=== PATIENT | female | born 1935 | race Caucasian/White ===

== ENCOUNTER 2018-12-30 20:43 | Inpatient (IN) ==
[2018-12-30] MEDS ORDERED: IOPAMIDOL 100 ML BOTTLE IV ONE (20:44)
[2018-12-30] MEDS ORDERED: 0.9 % SODIUM CHLORIDE 1,000 ML IV ONE ×2 (21:22→21:45)
--- NOTE | 2018-12-30 21:50 | Emergency Department Note ---
Weakness HPI - General Chief complaint: Weakness Stated complaint: Tired and Weak Time Seen by Provider: 12/30/18 20:47 Source: patient Mode of arrival: ambulatory Limitations: no limitations - History of Present Illness HPI Narrative: 83-year-old female comes in for weakness via EMS. They wrote that she was homeless but she reports that she is actually from the [facility] and is visiting-she is overall well dressed and has clean socks on so I am having trouble sorting this out as obviously she is getting clean clothes from somewhere. She is overall poor historian and I am not able to get much in the way of reliable history. She says she has chronic arthritis of her knees and ankles. She cannot really describe her weakness just that she is feeling very fatigued and weak. She states that she came up here with her son who had some doctor's appointments but he is not present. She cannot tell me when her last bowel movement or urine was. She cannot tell me where she ate breakfast this morning or any other details of her day. She cannot tell me which medicines she takes . she does have a history of dementia on chart review-there is a outside hospital report from [facility] as well as a previous note from back in September with Dr. jones. She is febrile here. No chest pain Her son came in and I briefly discussed the case with her. He says they are homeless and living in a tent. He cannot give me any meaningful medical history however - Related Data Home Medications Medication Instructions Recorded Confirmed Gabapentin [Neurontin] 300 mg PO DAILY 09/08/18 09/08/18 Gabapentin [Neurontin] 600 mg PO HS 09/08/18 09/08/18 Allergies Allergy/AdvReac Type Severity Reaction Status Date / Time No Known Drug Allergies Allergy Verified 09/08/18 00:01 Review of Systems Limitations: ROS unobtainable due to patients medical condition Past Medical History - Past Medical History Source: unable to obtain, old records reviewed Medical history: Reports: dementia Psychiatric history: Reports: anxiety Surgical history ED: Reports: - Social History smoking status: Current every day smoker Physical Exam Thin female no acute distress somnolent. Normocephalic atraumatic. Conjunctive are clear sclerae white and icteric. Pupils are equal round reactive to light. No nasal discharge or congestion. Oropharynx pink but seems dry. Posterior pharynx is clear. Neck is supple without lymphadenopathy or thyromegaly. No carotid bruit. Heart is regular rate and rhythm no murmur appreciated. However occasional irregular beat heard. Lungs are clear to auscultation bilaterally without wheezes rales rhonchi or respiratory distress. She is able to sit up for my exam without any difficulty abdomen is soft nontender nondistended. No pedal edema. She is alert. In terms of orientation she can tell me who she is but not necessarily where she is. When probed further about why she is here she is really sort of nebulous on that to-notes some weakness. Rectal exam was done because of her low hemoglobin. She is Hemoccult negative but she does have an old hemorrhoid tag-no active hemorrhoids noted. Normal rectal tone Limitations: no limitations Course Vital Signs Temperature 101.3 F H 12/30/18 20:43 Pulse Rate 94 H 12/30/18 20:43 Respiratory Rate 20 12/30/18 20:43 Blood Pressure 150/99 12/30/18 20:43 Pulse Oximetry (%) 97 12/30/18 20:43 Temperature 99.1 F H 12/31/18 00:13 Pulse Rate 87 12/31/18 01:50 Respiratory Rate 20 12/30/18 20:43 Blood Pressure 157/91 12/31/18 01:45 Pulse Oximetry (%) 96 12/31/18 01:50 Weakness - Lab Data Lab results reviewed: Yes I reviewed the patient's lab results. Result diagrams: 12/30/18 21:00 12/30/18 21:00 Lab Results 12/30/18 12/30/18 12/30/18 Range/Units 21:00 21:00 21:00 WBC 8.2 (4.5-11.0) K/mcL RBC 2.56 L (4.00-5.20) M/mcL Hgb 7.9 L (12.0-15.0) g/dL Hct 24.8 L (36.0-48.0) % MCV 96.6 (80.0-100.0) fL MCH 31.0 (26.0-34.0) pg MCHC 32.0 (31.0-36.0) g/dL RDW 13.4 (11.5-14.5) % Plt Count 217 (140-440) K/mcL MPV 7.4 (7.4-10.4) fL Gran % 52.3 (38.0-78.0) % Lymph % (Auto) 37.6 (15.5-49.0) % [place] % (Auto) 9.0 (1.0-12.0) % Eos % (Auto) 0.7 (0.0-7.0) % Baso % (Auto) 0.4 (0.0-2.0) % Gran # 4.3 (1.8-8.0) K/mcL Lymph # (Auto) 3.1 (1.5-4.8) K/mcL [place] # (Auto) 0.7 (0.1-0.9) K/mcL Eos # (Auto) 0.1 (0.0-0.7) K/mcL Baso # (Auto) 0 (0.0-0.3) K/mcL PT 13.5 (11.9-14.5) sec INR 1.0 (0.9-1.1) D-Dimer 0.86 H (0.00-0.40) ug/ml Sodium 133 (133-145) mmol/L Potassium 4.1 (3.3-5.1) mmol/L Chloride 100 (96-108) mmol/L Carbon Dioxide 23 (22-30) mmol/L Anion Gap 10.0 (8-16) BUN 31 H (8-23) mg/dl Creatinine 1.4 H (0.6-1.1) mg/dl GFR Calculation 35 Glucose 107 H (70-105) mg/dL Calcium 7.8 L (8.6-10.4) mg/dl Magnesium (1.6-2.5) mg/dL Total Bilirubin 0.4 (0.0-1.0) mg/dL AST 13 (0-37) U/l ALT 9 (0-40) U/l Alkaline Phosphatase 70 (39-117) U/L Troponin T (0-0.03) ng/ml NT-Pro-B Natriuret Pep (0-450) pg/ml Total Protein 11.2 H (5.9-8.4) gm/dL Albumin 2.2 L (3.2-5.2) gm/dL Globulin 9.0 H (2.2-3.7) gm/dL Albumin/Globulin Ratio 0.2 L (1.0-2.3) 12/30/18 12/30/18 Range/Units 21:00 21:00 WBC (4.5-11.0) K/mcL RBC (4.00-5.20) M/mcL Hgb (12.0-15.0) g/dL Hct (36.0-48.0) % MCV (80.0-100.0) fL MCH (26.0-34.0) pg MCHC (31.0-36.0) g/dL RDW (11.5-14.5) % Plt Count (140-440) K/mcL MPV (7.4-10.4) fL Gran % (38.0-78.0) % Lymph % (Auto) (15.5-49.0) % [place] % (Auto) (1.0-12.0) % Eos % (Auto) (0.0-7.0) % Baso % (Auto) (0.0-2.0) % Gran # (1.8-8.0) K/mcL Lymph # (Auto) (1.5-4.8) K/mcL [place] # (Auto) (0.1-0.9) K/mcL Eos # (Auto) (0.0-0.7) K/mcL Baso # (Auto) (0.0-0.3) K/mcL PT (11.9-14.5) sec INR (0.9-1.1) D-Dimer (0.00-0.40) ug/ml Sodium (133-145) mmol/L Potassium (3.3-5.1) mmol/L Chloride (96-108) mmol/L Carbon Dioxide (22-30) mmol/L Anion Gap (8-16) BUN (8-23) mg/dl Creatinine (0.6-1.1) mg/dl GFR Calculation Glucose (70-105) mg/dL Calcium (8.6-10.4) mg/dl Magnesium 1.9 (1.6-2.5) mg/dL Total Bilirubin (0.0-1.0) mg/dL AST (0-37) U/l ALT (0-40) U/l Alkaline Phosphatase (39-117) U/L Troponin T < 0.01 (0-0.03) ng/ml NT-Pro-B Natriuret Pep 1153.0 H (0-450) pg/ml Total Protein (5.9-8.4) gm/dL Albumin (3.2-5.2) gm/dL Globulin (2.2-3.7) gm/dL Albumin/Globulin Ratio (1.0-2.3) Urinalysis [id number] dipstick shows trace leukocytes and moderate amount of blood - Radiology Data Radiology results reviewed: Yes I reviewed the patient's radiology results. Chest x-ray is concerning for right upper lobe pathology-unclear if this is pneumonia or scarring. CT scan of the chest showed mild diffuse airway inflammation and some small mucous plugging. She has a couple of small renal lesions as well will require further characterization - EKG Data EKG attestation: Yes I reviewed and interpreted this EKG. EKG results narrative: EKG shows a rate of 85 normal sinus rhythm minimal ST elevation in V2 and 3-does not meet criteria for ischemia Disposition Pt seen by [facility] [facility] only: No Clinical Impression: Weakness Dementia Qualifiers: Dementia type: unspecified type Dementia behavioral disturbance: without behavioral disturbance Qualified Code(s): F03.90 - Unspecified dementia without behavioral disturbance Anemia Qualifiers: Anemia type: unspecified type Qualified Code(s): D64.9 - Anemia, unspecified UTI (urinary tract infection) Qualifiers: Urinary tract infection type: acute cystitis Hematuria presence: with hematuria Qualified Code(s): N30.01 - Acute cystitis with hematuria Summary: Weakness and somnolence in a woman with underlying dementia. She is febrile as well. Work-up ordered with laboratory CT scan of the head and chest x-ray EKG. Fluids started. She does not have any meningeal signs and she is able to move her head and neck normally We will start blood cultures and Zosyn, vancomycin for antibiotics. We will presumptively treat her for sepsis as she is febrile has altered mental status and tachycardia We gave her IV fluids and her tachycardia resolved. Chest x-ray showed right upper lobe pathology. Concern for pneumonia versus? Her d-dimer was elevated so we will get a CT angiogram to further sort this out. T BNP is elevated to 1100 but is unclear what her baseline is clinically she was dry when she came in. However because the elevated T BNP and her tachycardia resolved we went ahead and stopped IV fluids Rectal exam was performed because of her low hemoglobin. Hemoccult negative. Is unclear the source of her anemia but she does not meet clear criteria for transfusion as it is 7.9 and it is not known what her baseline is. CT scan of the lungs does not show pneumonia but does show diffuse mild airway disease. 2 small renal lesions are noted as well. Urinalysis [id number] dipstick shows likely UTI So this is likely complicated UTI causing her fever and tachycardia. Weakness could be caused by her anemia or the acute infection. Discussed the scenario with the hospitalist, Dr. Hutton. He agreed to accept the patient for further care and evaluation in the hospital. I will write holding orders for telemetry admission and he will see her later Disposition: Xfer As Inpt ([facility]) Condition: Critical Referrals: Juventino Ramirez MD [Primary Care Provider] -
[2018-12-30 21:55] LABS: Basophils # (Auto) 0 K/mcL (0.0-0.3); Basophils % (Auto) 0.4 % (0.0-2.0); Eosinophils # (Auto) 0.1 K/mcL (0.0-0.7); Eosinophils % (Auto) 0.7 % (0.0-7.0); Granulocytes % (Auto) 52.3 % (38.0-78.0); Hematocrit 24.8 % (36.0-48.0); Hemoglobin 7.9 g/dL (12.0-15.0); Lymphocytes # (Auto) 3.1 K/mcL (1.5-4.8); Lymphocytes % (Auto) 37.6 % (15.5-49.0); Mean Cell Volume 96.6 fL (80.0-100.0); Mean Platelet Volume 7.4 fL (7.4-10.4); Monocytes # (Auto) 0.7 K/mcL (0.1-0.9); Platelet Count 217 K/mcL (140-440); RBC 2.56 M/mcL (4.00-5.20); Red Cell Distribution Width 13.4 % (11.5-14.5); WBC 8.2 K/mcL (4.5-11.0)
[2018-12-30] MEDS ORDERED: PIPERACILLIN SODIUM/TAZOBACTAM 3.375 GM in DEXTROSE 5% IN WATER 50 ML IV ONE (21:56)
[2018-12-30] MEDS ORDERED: VANCOMYCIN 1,000 MG in 0.9 % SODIUM CHLORIDE 250 ML IV ONE (21:57)
[2018-12-30 22:16] LABS: Magnesium 1.9 mg/dL (1.6-2.5)
[2018-12-30 22:19] LABS: ALT/SGPT 9 U/l (0-40); AST/SGOT 13 U/l (0-37); Albumin 2.2 gm/dL (3.2-5.2); Albumin/Globulin Ratio 0.2 (1.0-2.3); Alkaline Phosphatase 70 U/L (39-117); Bilirubin,Total 0.4 mg/dL (0.0-1.0); Blood Urea Nitrogen 31 mg/dl (8-23); Calcium 7.8 mg/dl (8.6-10.4); Carbon Dioxide 23 mmol/L (22-30); Chloride 100 mmol/L (96-108); Glomerular Filtration Rate 35; Glucose 107 mg/dL (70-105); Potassium 4.1 mmol/L (3.3-5.1); Sodium 133 mmol/L (133-145)
[2018-12-30 22:23] LABS: D-Dimer 0.86 ug/ml (0.00-0.40); Prothrombin Time 13.5 sec (11.9-14.5)
[2018-12-31] MEDS ORDERED: HYDROcodone/APAP 5/325MG TABLET PO PRN (02:04)
[2018-12-31] MEDS ORDERED: ACETAMINOPHEN 325 MG TABLET PO PRN (02:04)
[2018-12-31] MEDS ORDERED: ONDANSETRON 4 MG/2 ML VIAL IV PRN ×3 (02:04→09:37)
[2018-12-31] MEDS ORDERED: 0.9 % SODIUM CHLORIDE 1,000 ML IV SCH ×2 (02:15→09:37)
--- NOTE | 2018-12-31 06:01 | Cat Scan Report ---
CLINICAL INFORMATION: Dyspnea. Elevated d-dimer. Dementia. COMPARISON: Chest x-ray dated 12/30/2018 TECHNIQUE: Axial images obtained through the chest. 70 mL intravenous contrast was administered, and scanning was performed during pulmonary arterial phase. Sagittally and coronally reformatted images were obtained. MIP reformatted images. FINDINGS: Main pulmonary artery, right pulmonary artery, left pulmonary artery are negative. No lobar or segmental abnormalities. Negative pulmonary CTA. No significant cardiomegaly. There is coronary artery calcification. No pulmonary parenchymal consolidation. No focal pulmonary parenchymal infiltrate or mass. No evidence for pneumonia. No pathologic hilar or mediastinal lymphadenopathy. No axillary or supraclavicular adenopathy. There is no pleural fluid. There is no pericardial fluid. There is no axillary or supraclavicular adenopathy. Severe compression fracture of the T12 vertebral body. Mild compression deformities of T6 and L2 vertebral bodies. Chronicity is not certain. Images through the upper abdomen demonstrate very small dense lesions in the right kidney. Significance is not certain. No other abnormalities. Examination was initially interpreted by [facility] IMPRESSION: 1. Negative pulmonary CTA. No pulmonary embolism. 2. No focal pulmonary parenchymal infiltrate. No evidence for pneumonia The exam was performed using radiation dose optimization techniques including, but not limited to, automated exposure control, adjustment of the mA and/or kV according to patient size and use of iterative reconstruction technique. Interpreted and Authenticated by: Tavo Vela 12/31/18
--- NOTE | 2018-12-31 06:10 | Cat Scan Report ---
CLINICAL INFORMATION: Weakness COMPARISON: None. TECHNIQUE: Axial noncontrast-enhanced images through the brain. Sagittal and coronal reformatted images FINDINGS: Suboptimal evaluation due to patient motion. No acute intracranial hemorrhage. There is no subdural hematoma. No subarachnoid hemorrhage. No acute or focal intra-axial attenuation abnormality. No localized mass effect. There is age-appropriate cerebral atrophy. There is white matter abnormality consistent with small vessel ischemic change. Possible focal low density abnormality in the left side of the mesencephalon maybe a nonacute lacunar infarction. Brainstem and cerebellum are otherwise negative. No hyperdense middle cerebral artery sign. No calvarial lesion. Skull base is negative. Examination was initially interpreted by [facility] IMPRESSION: 1. No acute intracranial hemorrhage 2. No acute abnormality. The exam was performed using radiation dose optimization techniques including, but not limited to, automated exposure control, adjustment of the mA and/or kV according to patient size and use of iterative reconstruction technique. Interpreted and Authenticated by: Tavo Vela 12/31/18
--- NOTE | 2018-12-31 06:11 | XRay Report ---
INDICATION: Weakness TECHNIQUE: AP chest x-ray,portable semiupright COMPARISON: None FINDINGS:Lungs are negative. No parenchymal infiltrate or mass. Heart size is within normal limits considering AP positioning. No pulmonary edema or pulmonary congestion. Magda and mediastinum are within normal limits. IMPRESSION: No acute or focal abnormality Interpreted and Authenticated by: Tavo Vela 12/31/18
[2018-12-31 08:24] LABS: Hematocrit 23.6 % (36.0-48.0); Mean Cell Volume 98.8 fL (80.0-100.0); Mean Corpuscular HGB Conc 33.8 g/dL (31.0-36.0); Mean Platelet Volume 7.3 fL (7.4-10.4); Platelet Count 198 K/mcL (140-440); RBC 2.39 M/mcL (4.00-5.20); Red Cell Distribution Width 14.1 % (11.5-14.5); WBC 9.3 K/mcL (4.5-11.0)
--- NOTE | 2018-12-31 08:31 | Internal Med History&Physical ---
Medical - H&P: [facility] Patient information: Note initiated : 12/31/18 at 8:29 am Service Date, if different from initiated Date: [] Patient: Chris Bryson 83 y/o F admitted on 12/31/18 for Tired and Weak. Chief Complaint: [] History of present illness: Ms. Bryson is a 83 year old F Presented to the to the ED last night because of generalized weakness found to be febrile. She states she felt some she states she did feel a little feverish but was not real impressive. She had no diarrhea no chest pain shortness of breath. No abdominal pain, no neck pain or stiffness. no dysuria. She been living in attendance been outside. Extensive work-up in the ED including CTA chest and CT brain which were both unremarkable. There is told that the urine dipstick was concerning for signs of infection. She lives with her son and [place] and in a tent. She she has mild headache's occasional nausea but denies any other real complaints other than feeling weak. Review of Systems: Pertinent positives as above. Denies chills/vomiting/chest or abdominal pain/cough/dyspnea/diarrhea. Many 10 point review of system reviewed negative Medical - H&P: PMH Medical history: Past medical history: Dementia Osteoarthritis Anxiety Tobacco abuse Past surgical history: C-sectionX3 Tonsillectomy Family history: States mother and father were both healthy Social she: Smokes 1/2 pack per day Denies alcohol use Lives with her son in a tent Medical - H&P: Meds Home Medications Medication Instructions Recorded Confirmed Type Gabapentin [Neurontin] 300 mg PO DAILY 09/08/18 09/08/18 History Gabapentin [Neurontin] 600 mg PO HS 09/08/18 09/08/18 History Allergies Allergy/AdvReac Type Severity Reaction Status Date / Time No Known Drug Allergies Allergy Verified 09/08/18 00:01 Medical - H&P: Exam - Constitutional Vitals: Temp Pulse Resp BP Pulse Ox 98.1 F 75 16 143/95 94 12/31/18 08:01 12/31/18 05:31 12/31/18 08:01 12/31/18 08:01 12/31/18 08:01 Exam: General: Alert, Awake, No acute Distress Eyes/N/T: EOMI, PEERL, DMM Head/Neck: neck supple, normocephalic atraumatic CV: RRR, No murmurs, normal s1/s2 Pulm: Clear b/l, no wheezing/rhonchi/rales Abd: soft, nontender, +BS x4 Ext: no clubbing/cyanosis/edema Neuro: A&O to peson/place but not to President or Year, no focal deficits, moves all extremities, CN 2-12 grossly intact, symmetrical strength b/l upper/lower, sensations intact b/l upper/lower Skin: warm/dry, tanned skin Medical - H&P: Reslt - Labs CBC & Chem 7: 12/31/18 07:52 12/31/18 07:52 Labs: Short CBC 12/30/18 12/31/18 Range/Units 21:00 07:52 WBC 8.2 9.3 (4.5-11.0) K/mcL Hgb 7.9 L 8.0 L (12.0-15.0) g/dL Hct 24.8 L 23.6 L (36.0-48.0) % Plt Count 217 198 (140-440) K/mcL BMP 12/30/18 21:00 Sodium 133 Potassium 4.1 Chloride 100 Carbon Dioxide 23 BUN 31 H Creatinine 1.4 H Glucose 107 H Calcium 7.8 L Cardiac Enzymes 12/30/18 Range/Units 21:00 Troponin T < 0.01 (0-0.03) ng/ml Liver Function 12/30/18 Range/Units 21:00 Total Bilirubin 0.4 (0.0-1.0) mg/dL AST 13 (0-37) U/l ALT 9 (0-40) U/l Alkaline Phosphatase 70 (39-117) U/L Albumin 2.2 L (3.2-5.2) gm/dL - Impressions CTA chest and CT head unremarkable Told that the urine dip in the ER looked like evidence of urinary tract infection I do not have a urinalysis yet Medical - H&P: A/P - Narrative A/P Narrative: A: *Generalized weakness/deconditionin/2 jonatan/volume depletion and anemia *AMS(somnolence) with underlying dementia: awake this morning, just tired *Dementia: *Fever: afebrile now, infectious w/u negative -suspect 2/2 dehydration and living outside in the heat - *JONATAN: improved with IVF's *Volume Depletion: *macrocytic normochromic anemia: Stable -Guaiac test on digital rectal exam unremarkable in ED -Likely contributing to her weakness * P: -IVF's -d/c Abx -pt/ot -APS -CM for placement -anemia w/u - -ppx: lovenox
[2018-12-31 08:49] LABS: ALT/SGPT 8 U/l (0-40); AST/SGOT 10 U/l (0-37); Albumin/Globulin Ratio 0.2 (1.0-2.3); Alkaline Phosphatase 61 U/L (39-117); Appearance,Urine CLEAR; Bacteria,Urine 0 /hpf (0); Bilirubin,Direct < 0.2 mg/dL (0.0-0.3); Bilirubin,Total 0.5 mg/dL (0.0-1.0); Bilirubin,Urine NEG (NEG); Blood Urea Nitrogen 21 mg/dl (8-23); Calcium 7.5 mg/dl (8.6-10.4); Carbon Dioxide 22 mmol/L (22-30); Chloride 107 mmol/L (96-108); Color,Urine STRAW; Culture Indicated,Urine NO; Globulin 8.4 gm/dL (2.2-3.7); Glomerular Filtration Rate 53; Glucose 82 mg/dL (70-105); Glucose,Urine (UA) NEGATIVE (NEG); Ketones,Urine NEG (NEG); Lactate Dehydrogenase 111 U/L (94-250); Leukocyte Esterase,Urine NEG /uL (NEG); Magnesium 1.9 mg/dL (1.6-2.5); Nitrate,Urine NEG (NEG); Phosphorous 2.8 mg/dL (2.7-4.5); Potassium 3.4 mmol/L (3.3-5.1); Protein,Urine NEG (NEG); Sodium 135 mmol/L (133-145); Specific Gravity,Urine 1.023 (1.000-1.035); Triglycerides 74 mg/dl (<150); Uric Acid 3.9 mg/dL (2.5-8.0); Urine Blood 0.03 mg/dL (<0.03); Urine RBC 1 /hpf (0-1); Urine Squamous Epithelial Cell < 1 /hpf (0-4); Urine WBC 1 /hpf (0-4); Urobilinogen,Urine NEG (NEG)
[2018-12-31 09:05] LABS: Basophils % (Manual) 1 % (0-2); Eosinophils % (Manual) 1 % (0-7); Lymphocytes % 52 % (15-49); Monocytes % (Manual) 4 % (1-12); Platelet Estimate NORMAL (NORMAL); RBC Morphology NORMAL (NORMAL); Segmented Neutrophils % 42 % (38-78)
[2018-12-31] MEDS: ACETAMINOPHEN 325 MG TABLET PO PRN ×2 (10:35→18:44)
[2018-12-31] MEDS: ENOXAPARIN 30 MG/0.3 ML SYRINGE SQ SCH (10:35)
[2018-12-31 11:08] LABS: Retic Absolute 1.8 % (0.5-1.5)
[2018-12-31 11:28] LABS: Iron 53 mcg/dl (37-145); TIBC Calculation 194 ug/dl (228-428); Thyroid Stimulating Hormone 3.36 uIU/ml (0.27-5.01); Transferrin % Saturation 27 % (15-50); Unsaturated Iron Binding 141 mcg/dL (112-346)
[2018-12-31 11:38] LABS: Vitamin B12 1180 pg/ml (232-1245)
[2018-12-31] MEDS ORDERED: PNEUMOCOCCAL 23-VAL P-SAC VAC 0.5 ML SYRINGE IM ONE (14:00)
[2018-12-31] MEDS: 0.9 % SODIUM CHLORIDE 10 ML SYRINGE IV SCH ×3 (14:09→21:25)
[2018-12-31] MEDS ORDERED: hydrALAZINE 20 MG/ML VIAL IV PRN (16:35)
[2018-12-31] MEDS ORDERED: LABETALOL 5 MG/ML ML IV PRN (16:38)
[2018-12-31 17:51] LABS: Amphetamine Screen,Urine NONE DETECTED (NONDETECTED); Barbiturate Screen,Urine NONE DETECTED (NONDETECTED); Benzodiazepines Screen,Urine NONE DETECTED (NONDETECTED); Cannabinoid Screen,Urine NONE DETECTED (NONDETECTED); Cocaine Screen,Urine NONE DETECTED (NONDETECTED); Opiate Screen,Urine NONE DETECTED (NONDETECTED); Oxycodone, Urine Screen NONE DETECTED (NONDETECTED); Phencyclidine Screen,Urine NONE DETECTED (NONDETECTED)
[2019-01-01] MEDS: cloNIDine HCL 0.1 MG TABLET PO PRN ×2 (07:07→17:08)
--- NOTE | 2019-01-01 07:16 | Internal Med Progress Note ---
Medical - PN: Subj Patient information: Note initiated : 01/01/19 at 7:14 am Service Date, if different from initiated Date: [] Patient: Chris Bryson 83 y/o F admitted on 12/31/18 for Tired and Weak. Chief Complaint: [] Interval history: Ms. Bryson is a 83 year old F Presented to the to the ED last night because of generalized weakness found to be febrile. She states she felt some she states she did feel a little feverish but was not real impressive. She had no diarrhea no chest pain shortness of breath. No abdominal pain, no neck pain or stiffness. no dysuria. She been living in attendance been outside. Extensive work-up in the ED including CTA chest and CT brain which were both unremarkable. There is told that the urine dipstick was concerning for signs of infection. She lives with her son and [place] and in a tent. She she has mild headache's occasional nausea but denies any other real complaints other than feeling weak. 01/01 No overnight events or new complaints. Patient sitting up in bed eating breakfast. Son present. Blood pressures have been running a bit high. When asked what medications he is to be on she her son says she is used to be on metoprolol and amlodipine. Review of Systems: denies headache/fever/chills/nausea/vomiting/chest or abdominal pain/cough/dyspnea/diarrhea. Otherwise see above. - Constitutional Vitals: Vital Signs Temp Pulse Resp BP Pulse Ox 98.3 F 82 18 181/104 95 01/01/19 07:08 01/01/19 07:08 01/01/19 07:08 01/01/19 07:08 01/01/19 07:08 Period Temp Pulse Resp BP Sys/Huber Pulse Ox Last 24 Hr 98.1 F-99.1 F 75-88 16-20 140-181/84-104 93-99 Intake and Output 12/31/18 01/01/19 01/01/19 21:59 05:59 13:59 Intake Total 360 Output Total 600 1025 Balance -240 -1025 Weight 49.396 kg Intake & Output: Intake & Output 12/31/18 01/01/19 01/01/19 21:59 05:59 13:59 Intake Total 360 Output Total 600 1025 Balance -240 -1025 Weight 49.396 kg Intake: Oral 360 Output: Void Amount 600 1025 Other: Meal Dinner Percent of Meal Consumed 100% # Bowel Movements 1 1 Exam: General: Alert, Awake, No acute Distress Eyes/N/T: EOMI, Head/Neck: neck supple, CV: RRR, No murmurs, Pulm: Clear b/l, no wheezing/rhonchi/rales Abd: soft, nontender, +BS x4 Ext: no clubbing/cyanosis/edema Neuro: alert, moves all extremities, no focal deficits Skin: warm/dry, tanned skin Medical - PN: Obj Da - Labs CBC & Chem 7: 12/31/18 07:52 12/31/18 07:52 Labs: Abnormal Lab Results 12/31/18 12/31/18 12/31/18 10:03 10:03 07:52 RBC Hgb Hct MPV Lymphocytes % Absolute Retic 1.8 H D-Dimer Anion Gap BUN Creatinine Glucose Calcium TIBC 194 L NT-Pro-B Natriuret Pep Total Protein Albumin Globulin Albumin/Globulin Ratio Urine Occult Blood 0.03 A 12/31/18 12/31/18 12/30/18 07:52 07:52 21:00 RBC 2.39 L Hgb 8.0 L Hct 23.6 L MPV 7.3 L Lymphocytes % 52 H Absolute Retic D-Dimer Anion Gap 6.0 L BUN Creatinine Glucose Calcium 7.5 L TIBC NT-Pro-B Natriuret Pep 1153.0 H Total Protein 10.4 H Albumin 2.0 L Globulin 8.4 H Albumin/Globulin Ratio 0.2 L Urine Occult Blood 12/30/18 12/30/18 12/30/18 21:00 21:00 21:00 RBC 2.56 L Hgb 7.9 L Hct 24.8 L MPV Lymphocytes % Absolute Retic D-Dimer 0.86 H Anion Gap BUN 31 H Creatinine 1.4 H Glucose 107 H Calcium 7.8 L TIBC NT-Pro-B Natriuret Pep Total Protein 11.2 H Albumin 2.2 L Globulin 9.0 H Albumin/Globulin Ratio 0.2 L Urine Occult Blood Meds: Medications Acetaminophen (Tylenol) 650 mg PO Q6HP PRN PRN Reason: PAIN/FEVER > 101 Last Admin: 12/31/18 18:44 Dose: 650 mg Documented by: Clonidine HCl (Catapres) 0.1 mg PO Q6HP PRN PRN Reason: Hypertension Last Admin: 01/01/19 07:07 Dose: 0.1 mg Documented by: Enoxaparin Sodium (Lovenox) 30 mg SQ DAILY [facility] Last Admin: 12/31/18 10:35 Dose: 30 mg Documented by: Hydralazine HCl (Apresoline) 10 - 20 mg IV Q2HP PRN PRN Reason: Hypertension Last Admin: 12/31/18 16:53 Dose: 10 mg Documented by: Labetalol HCl (Trandate) 10 - 20 mg IV Q2HP PRN PRN Reason: Hypertension Ondansetron HCl (Zofran) 4 mg IV Q6HP PRN PRN Reason: Nausea And Vomiting Last Admin: 12/31/18 19:48 Dose: 4 mg Documented by: Sodium Chloride (Saline Flush) 10 ml IV Q8 [facility] Last Admin: 12/31/18 21:25 Dose: 10 ml Documented by: Medical - PN: A/P - Time Spent With Patient Total time spent is greater than 50% in coordination of care (as documented) at patient's floor/unit and/or counseling patient: - Narrative A/P Narrative: A: *Generalized weakness/deconditionin/2 jonatan/volume depletion and anemia *AMS(somnolence) with underlying dementia: resolved *Dementia: *Fever: afebrile now, infectious w/u negative -suspect 2/2 dehydration and living outside in the heat - *JONATAN: improved with IVF's *Volume Depletion: *macrocytic normochromic anemia: Stable, b12/folate ok -Guaiac test on digital rectal exam unremarkable in ED *HTN: used to be on Toprol and amlodipine P: -IVF's finished -pt/ot -APS -CM for placement -start norvasc -ppx: lovenox
[2019-01-01] MEDS: 0.9 % SODIUM CHLORIDE 10 ML SYRINGE IV SCH ×3 (07:55→22:12)
[2019-01-01] MEDS: ENOXAPARIN 30 MG/0.3 ML SYRINGE SQ SCH (09:23)
[2019-01-01] MEDS: amLODIPine 5 MG TABLET PO SCH (09:23)
--- NOTE | 2019-01-01 11:15 | Discharge Summary ---
<Chas Hutton - Last Filed: 01/01/19 11:13> Medical - DS: Prov Patient information: Note initiated : 01/01/19 at 11:13 am Service Date, if different from initiated Date: [] Patient: Chris Bryson 83 y/o F admitted on 12/31/18 for Tired and Weak. Chief Complaint: [] Date of admission: 12/31/18 02:42 Primary care physician: Juventino Ramirez MD Consults: 12/31/18 Consult to Physician [CONS] Stat Comment: Consulting Provider: Chas Hutton Reason For Exam: Physician to Consult Medical - DS: Meds - Discharge Medications Prescriptions: amLODIPine [Norvasc] 5 mg PO DAILY #30 tab Capsaicin [Arthritis Pain Relief] 42.5 gm TP TIDP PRN #42.5 cream..g. PRN Reason: Pain Active and Home Medications: Home Medications Gabapentin [Neurontin] 300 mg PO DAILY 09/08/18 [History Confirmed 09/08/18 Last Taken Unknown] Gabapentin [Neurontin] 600 mg PO HS 09/08/18 [History Confirmed 09/08/18 Last Taken Unknown] Medical - DS: Hosp Hospital course: Ms. Bryson is a 83 year old F Presented to the to the ED last night because of generalized weakness found to be febrile. She states she felt some she states she did feel a little feverish but was not real impressive. She had no diarrhea no chest pain shortness of breath. No abdominal pain, no neck pain or stiffness. no dysuria. She been living in attendance been outside. Extensive work-up in the ED including CTA chest and CT brain which were both unremarkable. There is told that the urine dipstick was concerning for signs of infection. She lives with her son and [place] and in a tent. She she has mild headache's occasional nausea but denies any other real complaints other than feeling weak. 01/01 No overnight events or new complaints. Patient sitting up in bed eating breakfast. Son present. Blood pressures have been running a bit high. When asked what medications he is to be on she her son says she is used to be on metoprolol and amlodipine. Discharge diagnosis: Generalized weakness deconditioning dementia fever acute kidney injury volu Secondary discharge diagnosis: Following completion anemia hypertension - Time Spent with Patient Total time spent providing and/or coordinating discharge services: Greater than 30 minutes Medical - DS: Exam - Constitutional Vitals: Vital Signs Temp Pulse Pulse Resp BP BP Pulse Ox 01/01/19 09:31 76 160/104 01/01/19 07:33 82 95 01/01/19 07:08 98.3 F 82 18 181/104 95 01/01/19 04:00 98.9 F 88 20 155/88 93 01/01/19 00:00 99.1 F H 85 20 147/84 95 12/31/18 20:00 95 12/31/18 19:23 98.8 F 84 18 140/88 95 12/31/18 17:33 144/88 12/31/18 17:02 75 144/97 99 12/31/18 16:22 98.8 F 80 18 180/90 96 12/31/18 16:21 83 97 Intake and Output 12/31/18 01/01/19 01/01/19 21:59 05:59 13:59 Intake Total 360 445 Output Total 600 1025 32 Balance -240 -1025 413 Intake: Oral 360 445 Output: Void Amount 600 1025 30 Urine/Stool Mix 2 Other: Meal Dinner Breakfast Percent of Meal Consumed 100% bites Feeding Ability Independent Stool Size Small Stool Color Brown Stool Consistency Liquid # Voids 1 # Bowel Movements 1 1 1 Weight 49.396 kg 49.396 kg Patient Weight 01/02/19 05:59 Weight 49.396 kg Medical - DS: Data Labs on day of discharge: Labs from last 24 hours 12/31/18 12/31/18 12/31/18 17:05 10:03 10:03 Iron 53 TIBC 194 L Unsat Iron Binding 141 Transferrin % Sat 27 Ferritin 44.0 Vitamin B12 1180 Folate 15.2 TSH 3.36 Urine Opiates Screen None detected Ur Opiates Confirm Not Reportable Ur Oxycodone Screen None detected Urine Methadone Screen None detected Ur Methadone Confirm Not Reportable Ur Barbiturates Screen None detected Ur Barbiturate Confirm Not Reportable Ur Phencyclidine Scrn None detected Urine PCP Confirm Not Reportable Ur Amphetamines Screen None detected U Amphetamines Confirm Not Reportable U Benzodiazepines Scrn None detected U Benzodiazepine Confm Not Reportable Urine Cocaine Screen None detected Urine Cocaine Confirm Not Reportable U Cannabinoids Confirm Not Reportable U Marijuana (THC) Screen None detected Preliminary micro results at discharge 12/31/18 02:00 Urine Culture - Preliminary Urine - Clean Void Mid-Stream 12/30/18 22:20 Blood Culture - Preliminary Blood 12/30/18 22:22 Blood Culture - Preliminary Blood Medical - DS: A/P - Patient/Caregiver Discharge Instructions Activity: increase activity as tolerated Diet: Regular Diet Prescriptions: amLODIPine [Norvasc] 5 mg PO DAILY #30 tab - Follow up Plan Follow up with: Juventino Ramirez MD [Primary Care Provider] - Disposition: Home Health Service Prognosis: Undetermined Rehab Potential: Fair Overall status at discharge: patient is back to baseline <Rosalinda Wren - Last Filed: 01/05/19 10:43> Medical - DS: Prov Patient information: Note initiated : 01/05/19 at 10:41 am Service Date, if different from initiated Date: [] Patient: Chris Bryson 83 y/o F admitted on 12/31/18 for Tired and Weak. Chief Complaint: [] Date of admission: 12/31/18 02:42 Discharge date: 01/05/19 Primary care physician: Juventino Ramirez MD Consults: 12/31/18 Consult to Physician [CONS] Stat Comment: Consulting Provider: Chas Hutton Reason For Exam: Physician to Consult Discharging clinician: Rosalinda Wren Medical - DS: Meds - Discharge Medications Active and Home Medications: Home Medications Gabapentin [Neurontin] 300 mg PO BID 09/08/18 [History Confirmed 01/01/19 Last Taken Unknown] amLODIPine [Norvasc] 5 mg PO DAILY #30 tab 01/01/19 [Rx Last Taken Unknown] Medical - DS: Hosp Hospital course: Mr. Bryson is a 83 year old F - Time Spent with Patient Total time spent providing and/or coordinating discharge services: Medical - DS: Exam - Constitutional Vitals: Vital Signs Temp Pulse Resp BP Pulse Ox 01/05/19 07:20 98.7 F 70 18 149/99 96 01/05/19 04:00 97.9 F 71 16 127/79 98 01/04/19 23:48 98.1 F 74 20 135/84 96 01/04/19 20:16 98.7 F 71 20 151/96 97 01/04/19 16:00 99.1 F H 20 142/91 98 01/04/19 12:00 98.7 F 20 147/89 95 Intake and Output 01/04/19 01/05/19 01/05/19 21:59 05:59 13:59 Intake Total 200 785 120 Output Total 800 275 350 Balance -600 510 -230 Intake: Oral 200 785 120 Output: Void Amount 800 275 350 Other: Meal Dinner Tuna fish sandwich Breakfast Percent of Meal Consumed 75% 50% 50% Feeding Ability Independent Independent Independent Urine Appearance Clear Clear Urine Color Bright Yellow Bright Yellow Pale Urine Odor Strong Normal Stool Size Moderate Large Stool Color Brown Brown Stool Consistency Formed Formed # Voids 1 1 1 # Bowel Movements 1 1 Weight 105 lb 8 oz Medical - DS: Data Labs on day of discharge: Labs from last 24 hours 01/05/19 01/05/19 05:16 05:16 WBC 11.1 H RBC 2.53 L Hgb 8.3 L Hct 25.1 L MCV 99.0 MCH 32.9 MCHC 33.3 RDW 13.8 Plt Count 205 MPV 7.5 Gran % 43.1 Lymph % (Auto) 46.5 [place] % (Auto) 8.9 Eos % (Auto) 0.9 Baso % (Auto) 0.6 Gran # 4.8 Lymph # (Auto) 5.2 H [place] # (Auto) 1.0 H Eos # (Auto) 0.1 Baso # (Auto) 0.1 Sodium 129 L Potassium 3.9 Chloride 100 Carbon Dioxide 23 Anion Gap 6.0 L BUN 30 H Creatinine 0.9 GFR Calculation 60 Glucose 78 Uric Acid 4.6 Calcium 7.5 L Phosphorus 2.9 Magnesium 2.1 Total Bilirubin 0.4 Direct Bilirubin < 0.2 GGT 10 AST 17 ALT 14 Alkaline Phosphatase 60 Lactate Dehydrogenase 103 Total Protein 11.1 H Albumin 2.3 L Globulin 8.8 H Albumin/Globulin Ratio 0.3 L Triglycerides 85
[2019-01-01] MEDS: ACETAMINOPHEN 325 MG TABLET PO PRN ×2 (13:50→21:01)
[2019-01-01] MEDS ORDERED: NICOTINE 21 MG PATCH ONE (19:00)
[2019-01-01] MEDS: GABAPENTIN 300 MG CAPSULE PO SCH (20:53)
[2019-01-01] MEDS: NICOTINE 21 MG PATCH TOPICAL SCH (22:11)
[2019-01-02] MEDS: 0.9 % SODIUM CHLORIDE 10 ML SYRINGE IV SCH ×2 (04:42→12:02)
--- NOTE | 2019-01-02 07:09 | Internal Med Progress Note ---
Medical - PN: Subj Patient information: Note initiated : 01/02/19 at 7:08 am Service Date, if different from initiated Date: [] Patient: Chris Bryson 83 y/o F admitted on 12/31/18 for Tired and Weak. Chief Complaint: [] Interval history: Ms. Bryson is a 83 year old F Presented to the to the ED last night because of generalized weakness found to be febrile. She states she felt some she states she did feel a little feverish but was not real impressive. She had no diarrhea no chest pain shortness of breath. No abdominal pain, no neck pain or stiffness. no dysuria. She been living in attendance been outside. Extensive work-up in the ED including CTA chest and CT brain which were both unremarkable. There is told that the urine dipstick was concerning for signs of infection. She lives with her son and [place] and in a tent. She she has mild headache's occasional nausea but denies any other real complaints other than feeling weak. 01/01 No overnight events or new complaints. Patient sitting up in bed eating breakfast. Son present. Blood pressures have been running a bit high. When asked what medications he is to be on she her son says she is used to be on metoprolol and amlodipine. 01/02 Doing well slept well. No new complaints no overnight events. Awaiting placement Review of Systems: denies headache/fever/chills/nausea/vomiting/chest or abdominal pain/cough/dyspnea/diarrhea. Otherwise see above. - Constitutional Vitals: Vital Signs Temp Pulse Resp BP Pulse Ox 97.8 F 76 16 139/95 96 01/02/19 06:47 01/02/19 06:47 01/02/19 06:47 01/02/19 06:47 01/02/19 06:47 Period Temp Pulse Resp BP Sys/Huber Pulse Ox Last 24 Hr 97.8 F-99.1 F 70-86 16-20 124-163/80-109 95-98 Intake and Output 01/01/19 01/02/19 01/02/19 21:59 05:59 13:59 Intake Total 380 Output Total 120 Balance 260 Weight 48.534 kg Intake & Output: Intake & Output 01/01/19 01/02/19 01/02/19 21:59 05:59 13:59 Intake Total 380 Output Total 120 Balance 260 Weight 48.534 kg Intake: Nourishment/Supplement quantity 140 (ml) Oral 240 Output: Void Amount 120 Other: Meal Nourishment/Supplement Percent of Meal Consumed 50% Feeding Ability Independent Nourishment/Supplement name ensure # Voids 1 1 Exam: General: Alert, Awake, No acute Distress Eyes/N/T: EOMI, Head/Neck: neck supple, CV: RRR, No murmurs, Pulm: Clear b/l, no wheezing/rhonchi/rales Abd: soft, nontender, +BS x4 Ext: no clubbing/cyanosis/edema Neuro: alert, moves all extremities, no focal deficits Skin: warm/dry, tanned skin Medical - PN: Obj Da - Labs CBC & Chem 7: 12/31/18 07:52 12/31/18 07:52 Labs: Abnormal Lab Results 12/31/18 12/31/18 12/31/18 10:03 10:03 07:52 RBC Hgb Hct MPV Lymphocytes % Absolute Retic 1.8 H D-Dimer Anion Gap BUN Creatinine Glucose Calcium TIBC 194 L NT-Pro-B Natriuret Pep Total Protein Albumin Globulin Albumin/Globulin Ratio Urine Occult Blood 0.03 A 12/31/18 12/31/18 12/30/18 07:52 07:52 21:00 RBC 2.39 L Hgb 8.0 L Hct 23.6 L MPV 7.3 L Lymphocytes % 52 H Absolute Retic D-Dimer Anion Gap 6.0 L BUN Creatinine Glucose Calcium 7.5 L TIBC NT-Pro-B Natriuret Pep 1153.0 H Total Protein 10.4 H Albumin 2.0 L Globulin 8.4 H Albumin/Globulin Ratio 0.2 L Urine Occult Blood 12/30/18 12/30/18 12/30/18 21:00 21:00 21:00 RBC 2.56 L Hgb 7.9 L Hct 24.8 L MPV Lymphocytes % Absolute Retic D-Dimer 0.86 H Anion Gap BUN 31 H Creatinine 1.4 H Glucose 107 H Calcium 7.8 L TIBC NT-Pro-B Natriuret Pep Total Protein 11.2 H Albumin 2.2 L Globulin 9.0 H Albumin/Globulin Ratio 0.2 L Urine Occult Blood Meds: Medications Acetaminophen (Tylenol) 650 mg PO Q6HP PRN PRN Reason: PAIN/FEVER > 101 Last Admin: 01/01/19 21:01 Dose: 650 mg Documented by: Amlodipine Besylate (Norvasc) 5 mg PO DAILY [facility] Last Admin: 01/01/19 09:23 Dose: 5 mg Documented by: Clonidine HCl (Catapres) 0.1 mg PO Q6HP PRN PRN Reason: Hypertension Last Admin: 01/01/19 17:08 Dose: 0.1 mg Documented by: Enoxaparin Sodium (Lovenox) 30 mg SQ DAILY [facility] Last Admin: 01/01/19 09:23 Dose: 30 mg Documented by: Gabapentin (Neurontin) 300 mg PO HS [facility] Last Admin: 01/01/19 20:53 Dose: 300 mg Documented by: Hydralazine HCl (Apresoline) 10 - 20 mg IV Q2HP PRN PRN Reason: Hypertension Last Admin: 12/31/18 16:53 Dose: 10 mg Documented by: Labetalol HCl (Trandate) 10 - 20 mg IV Q2HP PRN PRN Reason: Hypertension Nicotine (Nicoderm) 21 mg TOPICAL DAILY@1839 [facility] Last Admin: 01/01/19 22:11 Dose: Not Given Documented by: Ondansetron HCl (Zofran) 4 mg IV Q6HP PRN PRN Reason: Nausea And Vomiting Last Admin: 12/31/18 19:48 Dose: 4 mg Documented by: Sodium Chloride (Saline Flush) 10 ml IV Q8 [facility] Last Admin: 01/02/19 04:42 Dose: Not Given Documented by: Medical - PN: A/P - Time Spent With Patient Total time spent is greater than 50% in coordination of care (as documented) at patient's floor/unit and/or counseling patient: - Narrative A/P Narrative: A: *Generalized weakness/deconditionin/2 jonatan/volume depletion and anemia *AMS(somnolence) with underlying dementia: resolved *Dementia: *Fever: afebrile now, infectious w/u negative -suspect 2/2 dehydration and living outside in the heat - *JONATAN: improved with IVF's *Volume Depletion: *macrocytic normochromic anemia: Stable, b12/folate ok -Guaiac test on digital rectal exam unremarkable in ED *HTN: used to be on Toprol and amlodipine P: -pt/ot -APS -CM for placement, awaiting -cont norvasc -ppx: lovenox
[2019-01-02] MEDS: ENOXAPARIN 30 MG/0.3 ML SYRINGE SQ SCH (08:28)
[2019-01-02] MEDS: amLODIPine 5 MG TABLET PO SCH (08:29)
[2019-01-02] MEDS: ACETAMINOPHEN 325 MG TABLET PO PRN ×2 (08:29→16:28)
[2019-01-02] MEDS: GABAPENTIN 300 MG CAPSULE PO SCH (20:44)
[2019-01-02] MEDS: NICOTINE 21 MG PATCH TOPICAL SCH (20:44)
[2019-01-03] MEDS: 0.9 % SODIUM CHLORIDE 10 ML SYRINGE IV SCH ×2 (00:59→05:01)
[2019-01-03] MEDS: cloNIDine HCL 0.1 MG TABLET PO PRN (01:44)
[2019-01-03] MEDS: ACETAMINOPHEN 325 MG TABLET PO PRN ×3 (04:22→21:10)
--- NOTE | 2019-01-03 07:59 | Internal Med Progress Note ---
Medical - PN: Subj Patient information: Note initiated : 01/03/19 at 7:59 am Service Date, if different from initiated Date: [] Patient: Chris Bryson 83 y/o F admitted on 12/31/18 for Tired and Weak. Chief Complaint: [] Interval history: Ms. Bryson is a 83 year old F Presented to the to the ED last night because of generalized weakness found to be febrile. She states she felt some she states she did feel a little feverish but was not real impressive. She had no diarrhea no chest pain shortness of breath. No abdominal pain, no neck pain or stiffness. no dysuria. She been living in attendance been outside. Extensive work-up in the ED including CTA chest and CT brain which were both unremarkable. There is told that the urine dipstick was concerning for signs of infection. She lives with her son and [place] and in a tent. She she has mild headache's occasional nausea but denies any other real complaints other than feeling weak. 01/01 No overnight events or new complaints. Patient sitting up in bed eating breakfast. Son present. Blood pressures have been running a bit high. When asked what medications he is to be on she her son says she is used to be on metoprolol and amlodipine. 01/02 Doing well slept well. No new complaints no overnight events. Awaiting placement 01/03 No complaints. No overnight events. Doing well. Awaiting placement for Saturday. Review of Systems: denies headache/fever/chills/nausea/vomiting/chest or abdominal pain/cough/dyspnea/diarrhea. Otherwise see above. - Constitutional Vitals: Vital Signs Temp Pulse Resp BP Pulse Ox 98.7 F 87 20 120/73 96 01/03/19 06:28 01/03/19 04:05 01/03/19 06:28 01/03/19 06:28 01/03/19 06:28 Period Temp Pulse Resp BP Sys/Huber Pulse Ox Last 24 Hr 97.8 F-98.7 F 66-88 16-24 120-161/72-97 94-98 Intake and Output 01/02/19 01/03/19 01/03/19 21:59 05:59 13:59 Intake Total 840 640 Output Total 150 Balance 840 640 -150 Weight 48.534 kg Intake & Output: Intake & Output 01/02/19 01/03/19 01/03/19 21:59 05:59 13:59 Intake Total 840 640 Output Total 150 Balance 840 640 -150 Weight 48.534 kg Intake: Oral 840 640 Output: Void Amount 150 Other: Meal Dinner Percent of Meal Consumed 100% Feeding Ability Independent Urine Color Pale Urine Odor Normal # Voids 1 1 Exam: General: Alert, Awake, No acute Distress Eyes/N/T: EOMI, Head/Neck: neck supple, CV: RRR, No murmurs, Pulm: Clear b/l, no wheezing/rhonchi/rales Abd: soft, nontender, +BS x4 Ext: no clubbing/cyanosis/edema Neuro: alert, moves all extremities, no focal deficits Skin: warm/dry, tanned skin Medical - PN: Obj Da - Labs CBC & Chem 7: 12/31/18 07:52 12/31/18 07:52 Labs: Abnormal Lab Results 12/31/18 12/31/18 12/31/18 10:03 10:03 07:52 RBC Hgb Hct MPV Lymphocytes % Absolute Retic 1.8 H Anion Gap Calcium TIBC 194 L Total Protein Albumin Globulin Albumin/Globulin Ratio Urine Occult Blood 0.03 A 12/31/18 12/31/18 07:52 07:52 RBC 2.39 L Hgb 8.0 L Hct 23.6 L MPV 7.3 L Lymphocytes % 52 H Absolute Retic Anion Gap 6.0 L Calcium 7.5 L TIBC Total Protein 10.4 H Albumin 2.0 L Globulin 8.4 H Albumin/Globulin Ratio 0.2 L Urine Occult Blood Meds: Medications Acetaminophen (Tylenol) 650 mg PO Q6HP PRN PRN Reason: PAIN/FEVER > 101 Last Admin: 01/03/19 04:22 Dose: 650 mg Documented by: Amlodipine Besylate (Norvasc) 5 mg PO DAILY [facility] Last Admin: 01/02/19 08:29 Dose: 5 mg Documented by: Clonidine HCl (Catapres) 0.1 mg PO Q6HP PRN PRN Reason: Hypertension Last Admin: 01/03/19 01:44 Dose: 0.1 mg Documented by: Enoxaparin Sodium (Lovenox) 30 mg SQ DAILY [facility] Last Admin: 01/02/19 08:28 Dose: 30 mg Documented by: Gabapentin (Neurontin) 300 mg PO HS [facility] Last Admin: 01/02/19 20:44 Dose: 300 mg Documented by: Hydralazine HCl (Apresoline) 10 - 20 mg IV Q2HP PRN PRN Reason: Hypertension Last Admin: 12/31/18 16:53 Dose: 10 mg Documented by: Labetalol HCl (Trandate) 10 - 20 mg IV Q2HP PRN PRN Reason: Hypertension Nicotine (Nicoderm) 21 mg TOPICAL DAILY@1839 [facility] Last Admin: 01/02/19 20:44 Dose: 21 mg Documented by: Ondansetron HCl (Zofran) 4 mg IV Q6HP PRN PRN Reason: Nausea And Vomiting Last Admin: 12/31/18 19:48 Dose: 4 mg Documented by: Sodium Chloride (Saline Flush) 10 ml IV Q8 [facility] Last Admin: 01/03/19 05:01 Dose: Not Given Documented by: Medical - PN: A/P - Time Spent With Patient Total time spent is greater than 50% in coordination of care (as documented) at patient's floor/unit and/or counseling patient: - Narrative A/P Narrative: A: *Generalized weakness/deconditionin/2 jonatan/volume depletion and anemia, improving *AMS(somnolence) with underlying dementia: resolved *Dementia: *Fever: afebrile now, infectious w/u negative -suspect 2/2 dehydration and living outside in the heat - *JONATAN: Resolved *Volume Depletion: Resolved *macrocytic normochromic anemia: Stable, b12/folate ok -Guaiac test on digital rectal exam unremarkable in ED *HTN: used to be on Toprol and amlodipine, but has not been on in a while, homeless P: -pt/ot -APS -CM for placement, awaiting -started norvasc -ppx: lovenox
[2019-01-03] MEDS: ENOXAPARIN 30 MG/0.3 ML SYRINGE SQ SCH (08:49)
[2019-01-03] MEDS: amLODIPine 5 MG TABLET PO SCH (08:49)
[2019-01-03] MEDS: POLYVINYL ALCOHOL OPHTH DROPS 15ML BOTTLE OU PRN ×4 (12:55→21:10)
[2019-01-03] MEDS: GABAPENTIN 300 MG CAPSULE PO SCH (21:09)
[2019-01-03] MEDS: NICOTINE 21 MG PATCH TOPICAL SCH (21:10)
[2019-01-04] MEDS: ACETAMINOPHEN 325 MG TABLET PO PRN ×3 (07:28→20:18)
[2019-01-04] MEDS: amLODIPine 5 MG TABLET PO SCH (07:28)
[2019-01-04] MEDS: ENOXAPARIN 30 MG/0.3 ML SYRINGE SQ SCH (07:33)
--- NOTE | 2019-01-04 07:33 | Internal Med Progress Note ---
Medical - PN: Subj Patient information: Note initiated : 01/04/19 at 7:32 am Service Date, if different from initiated Date: [] Patient: Chris Bryson 83 y/o F admitted on 12/31/18 for Tired and Weak. Chief Complaint: [] Interval history: Ms. Bryson is a 83 year old F Presented to the to the ED last night because of generalized weakness found to be febrile. She states she felt some she states she did feel a little feverish but was not real impressive. She had no diarrhea no chest pain shortness of breath. No abdominal pain, no neck pain or stiffness. no dysuria. She been living in attendance been outside. Extensive work-up in the ED including CTA chest and CT brain which were both unremarkable. There is told that the urine dipstick was concerning for signs of infection. She lives with her son and [place] and in a tent. She she has mild headache's occasional nausea but denies any other real complaints other than feeling weak. 01/01 No overnight events or new complaints. Patient sitting up in bed eating breakfast. Son present. Blood pressures have been running a bit high. When asked what medications he is to be on she her son says she is used to be on metoprolol and amlodipine. 01/02 Doing well slept well. No new complaints no overnight events. Awaiting placement 01/03 No complaints. No overnight events. Doing well. Awaiting placement for Saturday. 01/04 No overnight events. No complaints. still waiting for placement. Review of Systems: denies headache/fever/chills/nausea/vomiting/chest or abdominal pain/cough/dyspnea/diarrhea. Otherwise see above. - Constitutional Vitals: Vital Signs Temp Pulse Resp BP Pulse Ox 97.4 F 72 20 155/95 95 01/04/19 06:45 01/04/19 03:59 01/04/19 06:45 01/04/19 06:45 01/04/19 06:45 Period Temp Pulse Resp BP Sys/Huber Pulse Ox Last 24 Hr 97.4 F-98.5 F 72-82 16-20 129-155/84-96 95-97 Intake and Output 01/03/19 01/04/19 01/04/19 21:59 05:59 13:59 Intake Total 600 500 Output Total 0 600 Balance 600 500 -600 Weight 49.215 kg Intake & Output: Intake & Output 01/03/19 01/04/19 01/04/19 21:59 05:59 13:59 Intake Total 600 500 Output Total 0 600 Balance 600 500 -600 Weight 49.215 kg Intake: Oral 600 500 Output: Void Amount 600 # of times incontinent of urine 0 Other: # Voids 2 1 Exam: General: Alert, Awake, No acute Distress Eyes/N/T: EOMI, Head/Neck: neck supple, CV: RRR, No murmurs, Pulm: Clear b/l, no wheezing/rhonchi/rales Abd: soft, nontender, +BS x4 Ext: no clubbing/cyanosis/edema Neuro: alert, moves all extremities, no focal deficits Skin: warm/dry, tanned skin Medical - PN: Obj Da - Labs CBC & Chem 7: 12/31/18 07:52 12/31/18 07:52 Meds: Medications Acetaminophen (Tylenol) 650 mg PO Q6HP PRN PRN Reason: PAIN/FEVER > 101 Last Admin: 01/04/19 07:28 Dose: 650 mg Documented by: Amlodipine Besylate (Norvasc) 5 mg PO DAILY [facility] Last Admin: 01/04/19 07:28 Dose: 5 mg Documented by: Artificial Tears (Artificial Tears Ophth Drops) 1 gtt OU QIDP PRN PRN Reason: Dry Eye(s) Last Admin: 01/03/19 21:10 Dose: 1 gtt Documented by: Clonidine HCl (Catapres) 0.1 mg PO Q6HP PRN PRN Reason: Hypertension Last Admin: 01/03/19 01:44 Dose: 0.1 mg Documented by: Enoxaparin Sodium (Lovenox) 30 mg SQ DAILY [facility] Last Admin: 01/03/19 08:49 Dose: 30 mg Documented by: Gabapentin (Neurontin) 300 mg PO HS [facility] Last Admin: 01/03/19 21:09 Dose: 300 mg Documented by: Hydralazine HCl (Apresoline) 10 - 20 mg IV Q2HP PRN PRN Reason: Hypertension Last Admin: 12/31/18 16:53 Dose: 10 mg Documented by: Labetalol HCl (Trandate) 10 - 20 mg IV Q2HP PRN PRN Reason: Hypertension Nicotine (Nicoderm) 21 mg TOPICAL DAILY@1839 [facility] Last Admin: 01/03/19 21:10 Dose: 21 mg Documented by: Ondansetron HCl (Zofran) 4 mg IV Q6HP PRN PRN Reason: Nausea And Vomiting Last Admin: 12/31/18 19:48 Dose: 4 mg Documented by: Medical - PN: A/P - Time Spent With Patient Total time spent is greater than 50% in coordination of care (as documented) at patient's floor/unit and/or counseling patient: - Narrative A/P Narrative: A: *Generalized weakness/deconditionin/2 jonatan/volume depletion and anemia, improving *AMS(somnolence) with underlying dementia: resolved *Dementia: stable *Fever: afebrile now, infectious w/u negative -suspect 2/2 dehydration and living outside in the heat - *JONATAN: Resolved *Volume Depletion: Resolved *macrocytic normochromic anemia: Stable, b12/folate ok -Guaiac test on digital rectal exam unremarkable in ED *HTN: used to be on Toprol and amlodipine, but has not been on in a while, homeless P: -pt/ot -APS -CM for placement, awaiting -started norvasc 5mg -ppx: lovenox
[2019-01-04] MEDS: NICOTINE 21 MG PATCH TOPICAL SCH (20:04)
[2019-01-04] MEDS: cloNIDine HCL 0.1 MG TABLET PO PRN (20:18)
[2019-01-04] MEDS: POLYVINYL ALCOHOL OPHTH DROPS 15ML BOTTLE OU PRN ×2 (20:19→23:43)
[2019-01-04] MEDS: GABAPENTIN 300 MG CAPSULE PO SCH (21:40)
[2019-01-05] MEDS: ACETAMINOPHEN 325 MG TABLET PO PRN ×2 (02:18→10:00)
[2019-01-05 08:36] LABS: Basophils # (Auto) 0.1 K/mcL (0.0-0.3); Basophils % (Auto) 0.6 % (0.0-2.0); Eosinophils # (Auto) 0.1 K/mcL (0.0-0.7); Eosinophils % (Auto) 0.9 % (0.0-7.0); Granulocytes % (Auto) 43.1 % (38.0-78.0); Hematocrit 25.1 % (36.0-48.0); Hemoglobin 8.3 g/dL (12.0-15.0); Lymphocytes # (Auto) 5.2 K/mcL (1.5-4.8); Lymphocytes % (Auto) 46.5 % (15.5-49.0); Mean Corpuscular HGB Conc 33.3 g/dL (31.0-36.0); Mean Platelet Volume 7.5 fL (7.4-10.4); Monocytes % (Auto) 8.9 % (1.0-12.0); Platelet Count 205 K/mcL (140-440); RBC 2.53 M/mcL (4.00-5.20); Red Cell Distribution Width 13.8 % (11.5-14.5); WBC 11.1 K/mcL (4.5-11.0)
[2019-01-05 08:56] LABS: ALT/SGPT 14 U/l (0-40); AST/SGOT 17 U/l (0-37); Albumin 2.3 gm/dL (3.2-5.2); Albumin/Globulin Ratio 0.3 (1.0-2.3); Alkaline Phosphatase 60 U/L (39-117); Bilirubin,Direct < 0.2 mg/dL (0.0-0.3); Bilirubin,Total 0.4 mg/dL (0.0-1.0); Blood Urea Nitrogen 30 mg/dl (8-23); Calcium 7.5 mg/dl (8.6-10.4); Carbon Dioxide 23 mmol/L (22-30); Chloride 100 mmol/L (96-108); Globulin 8.8 gm/dL (2.2-3.7); Glomerular Filtration Rate 60; Glucose 78 mg/dL (70-105); Lactate Dehydrogenase 103 U/L (94-250); Magnesium 2.1 mg/dL (1.6-2.5); Phosphorous 2.9 mg/dL (2.7-4.5); Potassium 3.9 mmol/L (3.3-5.1); Sodium 129 mmol/L (133-145); Triglycerides 85 mg/dl (<150); Uric Acid 4.6 mg/dL (2.5-8.0)
[2019-01-05] MEDS: amLODIPine 5 MG TABLET PO SCH (10:00)
[2019-01-05] MEDS: POLYVINYL ALCOHOL OPHTH DROPS 15ML BOTTLE OU PRN (10:01)
[2019-01-05] MEDS: ENOXAPARIN 30 MG/0.3 ML SYRINGE SQ SCH (10:03)
--- NOTE | 2019-01-05 10:47 | Discharge Summary ---
Medical - DS: Prov Patient information: Note initiated : 01/05/19 at 10:44 am Service Date, if different from initiated Date: [] Patient: Chris Bryson 83 y/o F admitted on 12/31/18 for Tired and Weak. Chief Complaint: [] Date of admission: 12/31/18 02:42 Discharge date: 01/05/19 Primary care physician: Juventino Ramirez MD Consults: 12/31/18 Consult to Physician [CONS] Stat Comment: Consulting Provider: Chas Hutton Reason For Exam: Physician to Consult Discharging clinician: Rosalinda Wren Medical - DS: Meds - Discharge Medications Prescriptions: amLODIPine [Norvasc] 5 mg PO DAILY #30 tab Capsaicin [Arthritis Pain Relief] 42.5 gm TP TIDP PRN #42.5 cream..g. PRN Reason: Pain Multivitamin with Minerals/Lut [Vision Plus Lutein Vitamin Tab] 1 each PO DAILY #30 tab Active and Home Medications: Home Medications Gabapentin [Neurontin] 300 mg PO BID 09/08/18 [History Confirmed 01/01/19 Last Taken Unknown] amLODIPine [Norvasc] 5 mg PO DAILY #30 tab 01/01/19 [Rx Last Taken Unknown] Acetaminophen [Tylenol] 650 mg PO Q6HP PRN tablet 01/05/19 [Rx Last Taken Unknown] Capsaicin [Arthritis Pain Relief] 42.5 gm TP TIDP PRN #42.5 cream..g. 01/05/19 [Rx Last Taken Unknown] Multivitamin with Minerals/Lut [Vision Plus Lutein Vitamin Tab] 1 each PO DAILY #30 tab 01/05/19 [Rx Last Taken Unknown] Medical - DS: Hosp Hospital course: Ms. Bryson is a 83 year old F Presented to the to the ED last night because of generalized weakness found to be febrile. She states she felt some she states she did feel a little feverish but was not real impressive. She had no diarrhea no chest pain shortness of breath. No abdominal pain, no neck pain or stiffness. no dysuria. She been living in attendance been outside. Extensive work-up in the ED including CTA chest and CT brain which were both unremarkable. There is told that the urine dipstick was concerning for signs of infection. She lives with her son and [place] and in a tent. She she has mild headache's occasional nausea but denies any other real complaints other than feeling weak. 01/01 No overnight events or new complaints. Patient sitting up in bed eating breakfast. Son present. Blood pressures have been running a bit high. When asked what medications he is to be on she her son says she is used to be on metoprolol and amlodipine. 01/02 Doing well slept well. No new complaints no overnight events. Awaiting placement 01/03 No complaints. No overnight events. Doing well. Awaiting placement for Saturday. 01/04 No overnight events. No complaints. still waiting for placement. 01/05 Pt seen examined, no acute issues, labs reviewed, mild leucocytosis, but no e/o infection. The patient is able to tolerate p.o. diet well, no nausea no vomiting no diarrhea no cough no chest pain reported. She has been awaiting a bed which is available now. Will be discharged The patient does have elevated protein levels at 11.2, this needs to be further worked up. I have advised the patient to follow-up with her primary care provider for further evaluation of elevated total protein. In Summary Patient admitted to the hospital for generalized weakness and deconditioning, noted to have volume depletion, dehydration mild JONATAN. Responded well to IV fluids. No evidence of infection was noted CT chest negative urine negative. The patient does have elevated total protein and needs further work-up for same. She has mild anemia back test in the emergency room was negative, For her hypertension she is been started on amlodipine The patient will need outpatient follow-up with the primary care provider for further evaluation of her chronic medical conditions including elevated total protein Discharge diagnosis: Weakness - Time Spent with Patient Total time spent providing and/or coordinating discharge services: Greater than 30 minutes Medical - DS: Exam - Constitutional Vitals: Vital Signs Temp Pulse Resp BP Pulse Ox 01/05/19 07:20 98.7 F 70 18 149/99 96 01/05/19 04:00 97.9 F 71 16 127/79 98 01/04/19 23:48 98.1 F 74 20 135/84 96 01/04/19 20:16 98.7 F 71 20 151/96 97 01/04/19 16:00 99.1 F H 20 142/91 98 01/04/19 12:00 98.7 F 20 147/89 95 Intake and Output 01/04/19 01/05/19 01/05/19 21:59 05:59 13:59 Intake Total 200 785 120 Output Total 800 275 350 Balance -600 510 -230 Intake: Oral 200 785 120 Output: Void Amount 800 275 350 Other: Meal Dinner Tuna fish sandwich Breakfast Percent of Meal Consumed 75% 50% 50% Feeding Ability Independent Independent Independent Urine Appearance Clear Clear Urine Color Bright Yellow Bright Yellow Pale Urine Odor Strong Normal Stool Size Moderate Large Stool Color Brown Brown Stool Consistency Formed Formed # Voids 1 1 1 # Bowel Movements 1 1 Weight 105 lb 8 oz Additional comments: Constitutional; Afebrile, cooperative, alert, not in distress. Respiratory system: Air Entry equal on both sides, No crackles or wheezing, no rhonchi. CVS- Rate rhythm regular, S1,S2 heard, no gallop, no rub. Abdomen- Soft nontender abdomen, no organomegaly, no tenderness, no guarding or rigidity, CARE PROGRAM RESIDENT- AOOx3, moving all extremities, no gross focal deficit noted. Medical - DS: Data Labs on day of discharge: Labs from last 24 hours 01/05/19 01/05/19 05:16 05:16 WBC 11.1 H RBC 2.53 L Hgb 8.3 L Hct 25.1 L MCV 99.0 MCH 32.9 MCHC 33.3 RDW 13.8 Plt Count 205 MPV 7.5 Gran % 43.1 Lymph % (Auto) 46.5 [place] % (Auto) 8.9 Eos % (Auto) 0.9 Baso % (Auto) 0.6 Gran # 4.8 Lymph # (Auto) 5.2 H [place] # (Auto) 1.0 H Eos # (Auto) 0.1 Baso # (Auto) 0.1 Sodium 129 L Potassium 3.9 Chloride 100 Carbon Dioxide 23 Anion Gap 6.0 L BUN 30 H Creatinine 0.9 GFR Calculation 60 Glucose 78 Uric Acid 4.6 Calcium 7.5 L Phosphorus 2.9 Magnesium 2.1 Total Bilirubin 0.4 Direct Bilirubin < 0.2 GGT 10 AST 17 ALT 14 Alkaline Phosphatase 60 Lactate Dehydrogenase 103 Total Protein 11.1 H Albumin 2.3 L Globulin 8.8 H Albumin/Globulin Ratio 0.3 L Triglycerides 85 Medical - DS: A/P - Patient/Caregiver Discharge Instructions Activity: as per physical therapy Diet: Regular Diet Additional Instructions: Follow-up with your primary care provider in 1 to 2 weeks. You have elevated total protein in your blood, this needs to be further worked up, and this can be done by her regular provider. Go to the emergency room if fever chest pain shortness of breath or any other acute concern Prescriptions: amLODIPine [Norvasc] 5 mg PO DAILY #30 tab Capsaicin [Arthritis Pain Relief] 42.5 gm TP TIDP PRN #42.5 cream..g. PRN Reason: Pain Multivitamin with Minerals/Lut [Vision Plus Lutein Vitamin Tab] 1 each PO DAILY #30 tab - Follow up Plan Follow up with: Juventino Ramirez MD [Primary Care Provider] - 01/26/19 11:00 am Disposition: Xfer SNF Prognosis: Fair Rehab Potential: Fair I certify that the patient requires SNF services: Yes Overall status at discharge: patient is progressing back to baseline
== END 2019-01-05 11:33 | DRG 948 ==
LOC: ED 20:43 → ICU 12-31 02:42 → MEDSUR 01-01 17:40
PROVIDERS: ADMIT Internal Medicine; ATTEND Internal Medicine